=== PATIENT | female | born 1980 | race Caucasian/White ===

== ENCOUNTER 2021-07-17 00:11 | Inpatient (IN) | payer OTHER ==
[2021-07-17] MEDS ORDERED: Carboprost Tromethamine 250 MCG/1 ML Amp IM PRN (00:37)
[2021-07-17] MEDS ORDERED: Methylergonovine 0.2 MG/1 ML Amp IM PRN (00:37)
[2021-07-17] MEDS ORDERED: Butorphanol 1 MG/ML SDV IVPUSH PRN (00:37)
[2021-07-17] MEDS ORDERED: Sodium Chloride 0.9% 20 ML SDV IV PRN (00:37)
[2021-07-17] MEDS ORDERED: Misoprostol 200 MCG Tab PO PRN (00:37)
[2021-07-17] MEDS ORDERED: Sodium Chloride 0.9% 10 ML Syringe FLUSH PRN (00:37)
[2021-07-17] MEDS ORDERED: Nalbuphine 10 MG/1 ML Vial IVPUSH PRN (00:37)
[2021-07-17] MEDS ORDERED: Tranexamic Acid 1,000 MG in Sodium Chloride 0.9% 100 ML IV PRN (00:37)
[2021-07-17] MEDS ORDERED: Lidocaine 1% 50 ML MDV INJECT PRN (00:37)
[2021-07-17] MEDS ORDERED: Sodium Chloride 0.9% 2.5 ML Syringe FLUSH PRN (00:37)
[2021-07-17] MEDS ORDERED: Ondansetron 4 MG/2 ML SDV IVPUSH PRN (00:37)
[2021-07-17] MEDS ORDERED: Water For Irrigation,Sterile 1,000 ML Container IRR PRN (00:37)
[2021-07-17] MEDS ORDERED: Terbutaline 1 MG/ML SDV SUBCUT PRN (00:40)
[2021-07-17] MEDS ORDERED: Oxytocin/0.9 % Sodium Chloride 30 UNIT/500 ML BAG IV SCH ×2 (00:45)
[2021-07-17] MEDS ORDERED: Misoprostol 25 MCG (1/4 of 100 MCG) Tab VAG PRN ×2 (01:30→07:30)
[2021-07-17] MEDS: Lactated Ringers 1,000 ML IV SCH ×4 (01:43→10:07)
[2021-07-17] MEDS ORDERED: Ropivacaine HCl/PF 100 ML ONE (07:33)
[2021-07-17] MEDS ORDERED: ePHEDrine 50 MG/ML SDV IVPUSH PRN ×2 (07:44)
[2021-07-17] MEDS ORDERED: Ropivacaine HCl/PF 200 MG in Premix Bag 1 BAG EPIDUR SCH (07:45)
[2021-07-17] MEDS ORDERED: Aluminum Hydroxide/Magnesium Hydroxide/Simethicone XS Susp 30 ML Cup PO PRN (09:51)
[2021-07-17] MEDS ORDERED: Acetaminophen 500 MG Tab PO PRN ×2 (09:51)
[2021-07-17] MEDS ORDERED: oxyCODONE 5 MG Tab PO PRN (09:51)
[2021-07-17] MEDS ORDERED: Benzocaine/Menthol 20%-0.5% Spray 78 GM Cannister TOP PRN (09:51)
[2021-07-17] MEDS ORDERED: Witch Hazel Medicated Pads 40/Jar TOP PRN (09:51)
[2021-07-17] MEDS ORDERED: Ibuprofen 800 MG Tab PO PRN (09:51)
[2021-07-17] MEDS ORDERED: Bisacodyl 10 MG Supp RECTAL PRN (09:51)
[2021-07-17] MEDS ORDERED: Ibuprofen 400 MG Tab PO PRN (09:51)
[2021-07-17] MEDS ORDERED: Lanolin 100% Cream 7 GM Tube TOP PRN (09:51)
[2021-07-17] MEDS ORDERED: Docusate Sodium 100 MG Cap PO PRN (10:00)
== END 2021-07-18 20:15 | disposition home or self-care (01) | DRG 807 ==
LOC: MW.OBCHECK 00:11 → MW.OB 00:14 → MW.OBCHECK 00:37 → MW.OB 00:37 → OBSVTOIN 09:33 → MW.OB 16:00
PROVIDERS: ADMIT Obstetrics & Gynecology; ATTEND Obstetrics & Gynecology
PROC: 10E0XZZ Delivery of Products of Conception, External Approach (ICD-10-PCS; principal; 2021-07-17)
PROC: 3E0R3BZ Introduction of Anesthetic Agent into Spinal Canal, Percutaneous Approach (ICD-10-PCS; 2021-07-17)
PROC: 00HU33Z Insertion of Infusion Device into Spinal Canal, Percutaneous Approach (ICD-10-PCS; 2021-07-17)
PROC: 3E033VJ Introduction of Other Hormone into Peripheral Vein, Percutaneous Approach (ICD-10-PCS; 2021-07-17)
DX: O48.0 Post-term pregnancy (principal); Z37.0 Single live birth; O99.02 Anemia complicating childbirth; D64.9 Anemia, unspecified; Z20.822 Contact with and (suspected) exposure to COVID-19; Z3A.40 40 weeks gestation of pregnancy
CPT/HCPCS: 01967; 36415; 51702; 59025; 59409; 81003; 82803; 85014; 85018; 85027; 86592; 86850; 86900; 86901; A9270-GY; J2590; J2795; J7120; U0002